=== PATIENT | male | born 1995 | race Asian ===

== ENCOUNTER 2018-03-07 10:47 | Emergency (ER) | payer OTHER ==
[~2018-03-07] VITALS: Ht 162.6 cm; Wt 59.0 kg
[2018-03-07 10:54] VITALS: BP 116/81; TEMP 98.4
== END 2018-03-07 11:06 | disposition home or self-care (01) ==
LOC: ED 10:47
DX: B83.9 Helminthiasis, unspecified (principal)
CPT/HCPCS: 99281